=== PATIENT | female | born 1975 | race Caucasian/White ===

== ENCOUNTER 2017-04-10 02:42 | Observation (INO) | payer OTHER ==
[2017-04-10] MEDS ORDERED: SERTRALINE HCL100 M5 PO (03:02)
[2017-04-10] MEDS ORDERED: INHALER INH (03:02)
[2017-04-10] MEDS ORDERED: CLARITIN10 M6 PO (03:02)
[2017-04-10 03:40] LABS: BASO % 0.2 % (0-2); EOS % 5.1 % (0-7); EOSINOPHIL ABSOLUTE COUNT 0.5 tho/cmm (0.0-0.7); HCT-HEMATOCRIT 43.8 % (34.0-49.0); IMMATURE GRANULOCYTES ABSOLUTE 0.02 tho/cmm (0-0.03); IMMATURE GRANULOCYTES PERCENT 0.2 % (0-0.3); LYMPH % 32.7 % (20-45); LYMPH ABSOLUTE COUNT 2.9 tho/cmm (0.8-4.5); MCH (MEAN CORPUSCULAR HGB) 31.7 pg (28.0-32.0); MCHC MEAN CORPUSCULAR HGB CONC 34.2 % (32.0-36.0); MCV (MEAN CELL VOLUME) 92.6 fl (82.0-96.0); MEAN PLATELET VOLUME 9.4 cmc (9.4-12.4); MONO % 5.8 % (0-12); MONOCYTE ABSOLUTE COUNT 0.5 tho/cmm (0.0-1.2); NEUTROPHIL ABSOLUTE COUNT 4.9 tho/cmm (1.6-8.0); NEUTROPHIL-AUTOMATED 4.9 tho/cmm (1.6-8.0); PLATELET COUNT 234 tho/cmm (150-450); RED BLOOD COUNT 4.73 mil/cmm (4.00-5.20); RED CELL DISTRIBUTION WIDTH 11.9 % (12.4-16.4); WHITE BLOOD COUNT 8.8 tho/cmm (4.0-10.0)
[2017-04-10 03:49] LABS: PREGNANCY-SERUM NEGATIVE (NEGATIVE)
[2017-04-10 03:52] LABS: ANION GAP 11 mmol/L (0-20); BLOOD UREA NITROGEN 19 mg/dl (6-24); CALCIUM 8.7 mg/dl (8.5-10.5); CARBON DIOXIDE-VENOUS 26 mmol/L (22-32); CHLORIDE 106 mmol/l (96-110); CREATININE 1.02 mg/dl (0.50-1.10); GLUCOSE 110 mg/dL (70-110); MAGNESIUM 2.2 mg/dl (1.8-2.6); POTASSIUM 3.6 mmol/L (3.7-5.1); SODIUM 139 mmol/L (135-145); eGFR VALUE FOR BLACK 80 mL/Min
[2017-04-10] MEDS ORDERED: FLONASE ALLERG9.9 ML INH (08:07)
[2017-04-10] MEDS ORDERED: VENTOLIN HFA18 G2 INH (08:31)
[2017-04-10 13:05] LABS: CHOLESTEROL 177 mg/dl (120-200); HDL CHOLESTEROL 50 mg/dl (40-60); LDL CHOLESTEROL 97 mg/dl (0-99); TRIGLYCERIDES 151 mg/dl (<149); VLDL 30 mg/dl (0-30)
[2017-04-10] MEDS ORDERED: ONE DAILY1 EAC4 PO (13:49)
== END 2017-04-10 15:30 | disposition left against medical advice (07) ==
LOC: EDMED 02:42 → EMR2 06:25 → CAR1 07:20
PROVIDERS: Emergency Medicine; Nurse Practitioner Family; ADMIT Internal Medicine Cardiovascular Disease
DX: R07.89 Other chest pain (principal); M79.602 Pain in left arm; D68.51 Activated protein C resistance; J45.909 Unspecified asthma, uncomplicated; G43.909 Migraine, unspecified, not intractable, without status migrainosus; F41.9 Anxiety disorder, unspecified; Z79.899 Other long term (current) drug therapy; Z98.890 Other specified postprocedural states
CPT/HCPCS: A9500; C8929; G0378; Q9967